=== PATIENT | female | born 1970 | race American Indian/Alaskan Native ===

== ENCOUNTER 2018-01-04 04:08 | Emergency (ER) | payer BC ==
[2018-01-04 04:18] VITALS: BP 158/78
[2018-01-04] MEDS ORDERED: MOTRIN PO ONE ×2 (04:54→04:58)
--- NOTE | 2018-01-04 05:08 | XRay Report ---
FINAL REPORT PROCEDURE: XR FOOT 2V RT TECHNIQUE: Right foot radiographs, AP, lateral, and oblique views. CPT 31470 HISTORY: Right ankle pain COMPARISON: No prior studies are available for comparison. FINDINGS: Fracture (s) and/or Dislocation(s): None. There is an ossicle at the distal fibula. Alignment: Normal . Joint space(s): Normal . Soft tissues: Normal . Bone mineralization: Normal . Foreign bodies: None . Calcaneal spurring: There is a small inferior calcaneal spur.. IMPRESSION: There is no acute bony or soft tissue abnormality.
--- NOTE | 2018-01-04 05:16 | XRay Report ---
FINAL REPORT EXAM: XR ANKLE 3+V RT HISTORY: right ankle pain COMPARISONS: Right foot radiographs of the same date FINDINGS: Three views right ankle Intact ankle mortise. Osseous hypertrophy at the distal aspect of the lateral malleolus. No evident joint effusion or periarticular soft tissue swelling. Subtle lucency extends obliquely through the base of the 5th metatarsal without displacement/distraction, which is most likely developmental in nature. No acute fracture. Small calcaneal heel spur. IMPRESSION: No acute right ankle findings. Likely developmental lucency in the base of the 5th metatarsal. Possible sequela of prior injury involving the lateral malleolus.
--- NOTE | 2018-01-04 05:22 | Emergency Department Report ---
ED Lower Extremity HPI - General Chief Complaint: Extremity Injury, Lower Stated Complaint: RIGHT ANKLE PAIN Source: patient Mode of arrival: Ambulatory Limitations: Physical Limitation - History of Present Illness Initial Comments: This is a 47 y.o. female that presents with right ankle pain that started yesterday when she got off work. Patient reports job require a lot of standing and when she sat down she felt fine. When she tried to get out of bed around 0300 she couldn't apply pressure to right foot. Pain is 10/10 on scale and throbbing constantly. She can't tolerate touch and unable to bear weight. Denies injury, redness, or deformity. MD Complaint: ankle injury (right ankle pain with mild swelling, medial) -: Last night Injury: Ankle: Right (mild swelling, tender to touch) Type of Injury: unknown Place: home Severity: severe Severity scale (0 -10): 10 Improves With: nothing Worsens With: weight bearing, movement, palpation Associated Symptoms: swelling, unable to bear weight, ambulatory. denies: snap/ pop sensation, numbness, tingling, able to partially bear weight - Related Data Previous Rx's Medication Instructions Recorded Last Taken Type Ibuprofen 800 mg PO Q8H PRN #20 tablet 01/04/18 Unknown Rx Prednisone [predniSONE 10 mg 10 mg PO .TAPER #1 tab.ds.pk 01/04/18 Unknown Rx (6-Day Pack, 21 Tabs)] Allergies Allergy/AdvReac Type Severity Reaction Status Date / Time latex Allergy Hives Verified 01/04/18 04:18 povidone-iodine Allergy Hives Verified 01/04/18 04:18 [From Betadine] Tetracyclines Allergy Vomiting Verified 01/04/18 04:18 ED Review of Systems ROS: Stated complaint: RIGHT ANKLE PAIN Other details as noted in HPI Constitutional: denies: chills, fever Respiratory: denies: cough, shortness of breath, wheezing Cardiovascular: denies: chest pain, palpitations Gastrointestinal: denies: abdominal pain, nausea, vomiting, diarrhea Musculoskeletal: joint swelling (right medial ankle), arthralgia (right ankle pain). denies: back pain Skin: denies: rash, lesions Neurological: denies: headache, weakness, paresthesias Psychiatric: denies: anxiety, depression ED Past Medical Hx - Past Medical History Previous Medical History?: Yes Hx Hypertension: Yes - Surgical History Past Surgical History?: No - Social History Smoking Status: Never Smoker Substance Use Type: None - Medications Home Medications: Home Medications Medication Instructions Recorded Confirmed Last Taken Type Ibuprofen 800 mg PO Q8H PRN #20 tablet 01/04/18 Unknown Rx Prednisone [predniSONE 10 mg 10 mg PO .TAPER #1 tab.ds.pk 01/04/18 Unknown Rx (6-Day Pack, 21 Tabs)] ED Physical Exam - General Limitations: Physical Limitation General appearance: alert, in no apparent distress - Respiratory Respiratory exam: Present: normal lung sounds bilaterally. Absent: respiratory distress, wheezes, rales, rhonchi, stridor, accessory muscle use - Cardiovascular Cardiovascular Exam: Present: regular rate, normal rhythm, normal heart sounds. Absent: systolic murmur, diastolic murmur, rubs, gallop - GI/Abdominal GI/Abdominal exam: Present: soft, normal bowel sounds. Absent: distended, tenderness, guarding, rebound, rigid, organomegaly, mass - Extremities Exam Extremities exam: Present: normal inspection, normal capillary refill. Absent: calf tenderness - Expanded Lower Extremity Exam Right Hip exam: Present: normal inspection, full ROM Upper Leg exam: Present: normal inspection, full ROM Knee exam: Present: normal inspection, full ROM Lower Leg exam: Present: normal inspection, full ROM Ankle exam: Present: tenderness (tenderness and swelling, medially, no erythema , warm), swelling. Absent: abrasion, laceration, ecchymosis, deformity, crepidus, dislocation, erythema, anterior draw sign Foot/Toe exam: Present: normal inspection, full ROM Neuro vascular tendon exam: Present: no vascular compromise Gait: Positive: unable to bear weight (RLE) - Neurological Exam Neurological exam: Present: alert, oriented X3, abnormal gait (unable to bear weight to RLE) - Psychiatric Psychiatric exam: Present: normal affect, normal mood - Skin Skin exam: Present: warm, dry, intact, normal color. Absent: rash ED Course Vital Signs 01/04/18 04:14 Temperature 98.3 F Pulse Rate 101 H Respiratory 18 Rate Blood Pressure 158/78 O2 Sat by Pulse 97 Oximetry ED Lower Extremity MDM - Radiology Data Radiology results: report reviewed XR right ankle: of No acute right ankle findings. Likely developmental lucency in the base of the 5th metatarsal. Possible sequela of prior injury involving the lateral malleolus. XR right foot: There is no acute bony or soft tissue abnormality. - Medical Decision Making This is a 47 y.o. female that presents with swelling and pain to medial right ankle that started last night. Patient is stable and examined by me. Obtained Uric acid, pending. Uric acid 9.0. Xray of right ankle and foot obtained and read by radiologist. XR right ankle: of No acute right ankle findings. Likely developmental lucency in the base of the 5th metatarsal. Possible sequela of prior injury involving the lateral malleolus. XR right foot: There is no acute bony or soft tissue abnormality. Given ibuprofen 600 mg po once in ER. Discussed plan to start prednisone taper and diclofenac with patient for muscle strain. Patient agrees to ED plan of care. Discharged home and follow up with PCP in 3 days. Referral to Orthopedic. Critical care attestation.: If time is entered above; I have spent that time in minutes in the direct care of this critically ill patient, excluding procedure time. ED Disposition Clinical Impression: Heel spur Qualifiers: Laterality: right Qualified Code(s): M77.31 - Calcaneal spur, right foot Right ankle strain Qualifiers: Encounter type: initial encounter Qualified Code(s): S96.911A - Strain of unspecified muscle and tendon at ankle and foot level, right foot, initial encounter Disposition: TO HOME OR SELFCARE Is pt being admited?: No Does the pt Need Aspirin: No Condition: Stable Instructions: Ankle Exercises (GEN), Muscle Strain (ED) Additional Instructions: Rest Use ice or heat on affected area for 20 minutes and off for 2 hours. Take pain medication as needed for pain. Don't drive or operate heavy machinery while taking muscle relaxers because they may cause drowsiness. Follow up with Primary Care Provider in 2-3 days. Prescriptions: Ibuprofen 800 mg PO Q8H PRN #20 tablet PRN Reason: Pain Prednisone [predniSONE 10 mg (6-Day Pack, 21 Tabs)] 10 mg PO .TAPER #1 tab.ds.pk Referrals: LB GALLEGOS MD [Referring] - 3-5 Days DEVEN VELIZ MD [Staff Physician] - 3-5 Days FELICITY RACHEL MD [Staff Physician] - 3-5 Days Forms: Work/School Release Form(ED) Time of Disposition: 06:49 Print Language: ARABIC
== END 2018-01-04 07:20 | disposition home or self-care (01) ==
LOC: ED 04:08
DX: M77.31 Calcaneal spur, right foot (principal); I10 Essential (primary) hypertension; Z91.040 Latex allergy status; Z88.1 Allergy status to other antibiotic agents
CPT/HCPCS: 36415; 84550; 99284